=== PATIENT | male | born 1985 | race Caucasian/White ===

== ENCOUNTER 2021-07-12 20:54 | Emergency (ER) | payer SELFPAY ==
[2021-07-12] MEDS ORDERED: Ketorolac Tromethamine 30 MG/ML VIAL ONE (21:30)
== END 2021-07-12 23:06 | disposition home or self-care (01) ==
LOC: ERS 20:54
DX: J02.9 Acute pharyngitis, unspecified (principal)
CPT/HCPCS: 87081; 87430; 87804; 96372; 99284; J1885